=== PATIENT | male | born 1980 | race Caucasian/White ===

== ENCOUNTER 2023-08-30 12:39 | Emergency (ER) | payer OTHER ==
[~2023-08-30] VITALS: Ht 175.3 cm; Wt 90.7 kg
[2023-08-30 12:56] VITALS: BP 132/83; PULSE 114; RESP 18; TEMP 102.9; O2SAT 100
[2023-08-30] MEDS ORDERED: ACETAMINOPHEN 325 MG TAB PO ONE (14:20)
[2023-08-30] MEDS ORDERED: AMPICILLIN/SULBACTAM 3 GM in NACL 0.9% MINI-BAG PLUS 100 ML IV ONE (14:20)
[2023-08-30] MEDS ORDERED: NACL 0.9% 1,000 ML IV SCH (14:20)
[2023-08-30 15:17] LABS: MEAN CORPUSCULAR HEMOGLOBIN 27 pg (27-31); MEAN CORPUSCULAR HGB CONC 33 g/dL (33-37); MEAN CORPUSCULAR VOLUME 80.2 fL (80-94); PLATELET COUNT (AUTO) 444 K/uL (140-450); RED BLOOD CELL COUNT(AUTO) 4.49 MIL/uL (4.20-6.10); RED CELL DISTRIBUTION WIDTH 14.7 % (11.6-13.7); WHITE BLOOD COUNT (AUTO) 15.2 K/uL (4.8-10.8)
[2023-08-30 15:30] LABS: ALBUMIN 2.9 g/dL (3.4-5.0); ANION GAP 12.8 (8-16); CALCIUM 8.2 mg/dL (8.5-10.1); CREATININE 0.9 mg/dL (0.6-1.3); POTASSIUM 3.8 mmol/L (3.5-5.1); TOTAL BILIRUBIN 0.4 mg/dL (0.0-1.0); TOTAL PROTEIN, SERUM 7.4 g/dL (6.4-8.2)
[2023-08-30 15:33] LABS: BASOPHILS % (MANUAL) 0 % (0-2); EOSINOPHILS % (MANUAL) 0 % (0-4); LYMPHOCYTES % (MANUAL) 19 % (20-46); METAMYELOCYTES % 1 % (0-0); MONOCYTES % (MANUAL) 8 % (5-12); PLATELET ESTIMATE ADEQUATE; SMUDGE CELLS FEW
[2023-08-30 15:35] LABS: CREATINE KINASE, TOTAL 85 U/L (39-308); LACTIC ACID 0.6 mmol/L (0.4-2.0)
[2023-08-30] MEDS ORDERED: AMPICILLIN/SULBACTAM 3 GM VIAL ONE (15:44)
[2023-08-30] MEDS ORDERED: ACETAMINOPHEN 325 MG TAB ONE (15:55)
[2023-08-30] MEDS ORDERED: BACITRACIN OINT 500 UNITS/GM PKT TP ONE (16:05)
[2023-08-30 16:08] VITALS: O2SAT 95
[2023-08-30] MEDS ORDERED: DOXY-690 PO (16:19)
[2023-08-30] MEDS ORDERED: BACTO TP (16:19)
[2023-08-30 18:23] VITALS: BP 124/65; PULSE 75; RESP 18; TEMP 98.2
== END 2023-08-30 18:15 | disposition home or self-care (01) ==
LOC: MED 12:39
DX: L03.116 Cellulitis of left lower limb (principal); L03.115 Cellulitis of right lower limb; Z79.899 Other long term (current) drug therapy
CPT/HCPCS: 36415; 71045; 80053; 82550; 83605; 83880; 84484; 85025; 87040; 93005; 96361; 96365; 99285; J0295; J7030; Q0092